=== PATIENT | male | born 1960 | race Caucasian/White ===

== ENCOUNTER → 2017-05-29 | Outpatient (REF) ==
[2006-06-19 08:55] VITALS: TEMP 96.1
[~2017-05-29] MED LIST: ASPIRIN 81M81 MG/TA2 PO; BLOOD PRESSURE PILL; NORCO 325 MG-51 TAB PO
== END ==
LOC: WSOH 10:12
DX: Z02.89 Encounter for other administrative examinations (principal)

== ENCOUNTER → 2019-04-12 | Outpatient (CLI) | payer OTHER ==
[2006-06-19 08:55] VITALS: TEMP 96.1
== END ==
LOC: COL.RAD 10:00
DX: S06.5X0S Traumatic subdural hemorrhage without loss of consciousness, sequela (principal)

== ENCOUNTER 2021-06-02 16:46 | Emergency (ER) | payer OTHER ==
[~2021-06-02] VITALS: Ht 172.7 cm; Wt 93.2 kg
[2021-06-02 17:51] VITALS: TEMP 98.1
[2021-06-02] MEDS ORDERED: CEPHALEXIN500 M1 PO (19:21)
[2021-06-02 20:15] VITALS: BP 135/77; PULSE 58
== END 2021-06-02 20:15 | disposition home or self-care (01) ==
LOC: COL.ER 16:46
DX: S62.631A Displaced fracture of distal phalanx of left index finger, initial encounter for closed fracture (principal); I10 Essential (primary) hypertension; W23.0XXA Caught, crushed, jammed, or pinched between moving objects, initial encounter